=== PATIENT | female | born 1980 | race Caucasian/White ===

== ENCOUNTER → 2018-12-05 | Outpatient (CLI) | payer SELFPAY ==
[~2018-12-05] MED LIST: CYCLOBENZAPRINE10 M1 PO; NORCO 325 MG-51 TAB PO
== END ==
LOC: RAD 09:55
DX: E04.2 Nontoxic multinodular goiter (principal); R22.1 Localized swelling, mass and lump, neck
CPT/HCPCS: Q9967

== ENCOUNTER → 2020-07-19 | Outpatient (CLI) | payer SELFPAY | LOC: LAB 11:20 | DX: L50.9 Urticaria, unspecified (principal) ==

== ENCOUNTER → 2024-01-22 | Outpatient (CLI) | payer OTHER | LOC: RAD 07:51 | DX: K80.20 Calculus of gallbladder without cholecystitis without obstruction (principal); M54.6 Pain in thoracic spine; Z87.19 Personal history of other diseases of the digestive system ==

== ENCOUNTER → 2024-02-12 | Outpatient (CLI) | payer OTHER ==
[2024-02-12 17:18] LABS: BASO # 0.03 K/mm3 (0.02-0.10); EOS # 0.21 K/mm3 (0.04-0.40); EOS % 2.2 % (1.0-5.0); HEMATOCRIT 37.2 % (37.0-47.0); HEMOGLOBIN 12.7 g/dL (12.5-16.0); LYMPH# 2.17 K/mm3 (1.50-4.00); MEAN CELL VOLUME 96 fl (78-100); MEAN CORPUSCULAR HEMOGLOBIN 33 pg (27-31); MEAN CORPUSCULAR HGB CONC 34 g/dL (33-37); MEAN PLATELET VOLUME 9.7 fl (7.4-10.4); MONO # 0.54 K/mm3 (0.20-0.80); NEU # 6.45 K/mm3 (1.40-6.50); PLATELET COUNT 288 K/mm3 (130-400); RED BLOOD COUNT 3.86 M/mm3 (4.10-5.30); RED CELL DISTRIBUTION WIDTH 12.2 % (11.5-14.5); WHITE BLOOD COUNT 9.4 K/mm3 (4.8-10.8)
[2024-02-12 17:29] LABS: ALBUMIN 4.4 g/dL (3.5-5.0); SODIUM 139 mmol/L (136-145)
[2024-02-12 17:31] LABS: GLUCOSE 97 mg/dL (65-105)
[2024-02-12 17:32] LABS: TOTAL PROTEIN 6.8 g/dL (6.4-8.3)
[2024-02-12 17:33] LABS: CARBON DIOXIDE 23 mmol/L (22-29); TOTAL BILIRUBIN 1.3 mg/dL (0.2-1.2)
[2024-02-12 17:37] LABS: AST-SGOT 15 U/L (5-34)
[2024-02-12 17:39] LABS: LIPASE 31 U/L (8-78)
[2024-02-12 17:42] LABS: ALT/SGPT < 6 U/L (0-55)
== END ==
LOC: LAB 16:50
PROVIDERS: Nurse Practitioner Family
DX: R10.9 Unspecified abdominal pain (principal)